=== PATIENT | female | born 1945 | race Caucasian/White ===

== ENCOUNTER 2017-11-18 12:37 | Outpatient (CLI) | payer OTHER | END 2017-11-18 12:44 | disposition home or self-care (01) | LOC: NUCLEAR 12:37 | DX: I83.12 Varicose veins of left lower extremity with inflammation (principal); I83.11 Varicose veins of right lower extremity with inflammation; M79.661 Pain in right lower leg; I87.2 Venous insufficiency (chronic) (peripheral); I83.012 Varicose veins of right lower extremity with ulcer of calf ==

== ENCOUNTER 2017-11-25 12:54 | Outpatient (CLI) | payer OTHER | END 2017-11-25 13:00 | disposition home or self-care (01) | LOC: NUCLEAR 12:54 | DX: L97.102 Non-pressure chronic ulcer of unspecified thigh with fat layer exposed (principal); I83.212 Varicose veins of right lower extremity with both ulcer of calf and inflammation; I83.11 Varicose veins of right lower extremity with inflammation; M79.661 Pain in right lower leg; I73.9 Peripheral vascular disease, unspecified ==

== ENCOUNTER 2019-05-06 13:15 | Emergency (ER) | payer OTHER ==
[~2019-05-06] VITALS: Ht 167.6 cm; Wt 68.0 kg
[2019-05-06] MEDS ORDERED: COZAAR50 MG PO (13:52)
[2019-05-06] MEDS ORDERED: FORTAMET1000 MG PO (13:52)
[2019-05-06] MEDS ORDERED: GLUMETZA500 MG PO (13:52)
[2019-05-06] MEDS ORDERED: TRIGLIDE160 MG PO (13:53)
[2019-05-06] MEDS ORDERED: PENTOXIFYLLINE400 MG PO (13:53)
[2019-05-06] MEDS ORDERED: GLIMEPIRIDE4 MG PO (13:54)
[2019-05-06] MEDS ORDERED: SIMVASTATIN5 MG PO (13:54)
== END 2019-05-06 16:53 | disposition home or self-care (01) ==
LOC: ER 13:15
DX: N39.0 Urinary tract infection, site not specified (principal); R31.0 Gross hematuria

== ENCOUNTER 2019-09-07 07:31 | Outpatient (CLI) | payer OTHER ==
[~2019-09-07 07:31] MED LIST: COZAAR50 MG PO; FORTAMET1000 MG PO; GLIMEPIRIDE4 MG PO; GLUMETZA500 MG PO; PENTOXIFYLLINE400 MG PO; SIMVASTATIN5 MG PO; TRIGLIDE160 MG PO
== END 2019-09-07 14:27 | disposition home or self-care (01) ==
LOC: NUCLEAR 07:31
DX: I11.9 Hypertensive heart disease without heart failure (principal); M81.0 Age-related osteoporosis without current pathological fracture; Z68.29 Body mass index [BMI] 29.0-29.9, adult; M79.604 Pain in right leg; M79.605 Pain in left leg; M79.661 Pain in right lower leg; I83.012 Varicose veins of right lower extremity with ulcer of calf; I83.11 Varicose veins of right lower extremity with inflammation; I83.813 Varicose veins of bilateral lower extremities with pain; E11.39 Type 2 diabetes mellitus with other diabetic ophthalmic complication; E11.618 Type 2 diabetes mellitus with other diabetic arthropathy; E11.620 Type 2 diabetes mellitus with diabetic dermatitis; E11.628 Type 2 diabetes mellitus with other skin complications

== ENCOUNTER → 2019-11-01 | Outpatient (CLI) | payer OTHER | END | disposition home or self-care (01) | LOC: NUCLEAR 09-06 09:00 → RAD 10:35 | DX: I11.9 Hypertensive heart disease without heart failure (principal); M79.605 Pain in left leg; M79.661 Pain in right lower leg; I83.012 Varicose veins of right lower extremity with ulcer of calf; I83.11 Varicose veins of right lower extremity with inflammation; I83.813 Varicose veins of bilateral lower extremities with pain; E11.29 Type 2 diabetes mellitus with other diabetic kidney complication; E11.618 Type 2 diabetes mellitus with other diabetic arthropathy; E11.39 Type 2 diabetes mellitus with other diabetic ophthalmic complication; E11.628 Type 2 diabetes mellitus with other skin complications ==

== ENCOUNTER 2019-11-21 10:04 | Outpatient (CLI) | payer OTHER | END 2019-11-21 10:09 | disposition home or self-care (01) | LOC: MRI 10:04 | PROVIDERS: ATTEND Orthopaedic Surgery | DX: M25.562 Pain in left knee (principal) | CPT/HCPCS: 73721 ==

== ENCOUNTER → 2020-05-03 09:30 | Outpatient (CLI) | payer OTHER | END | disposition home or self-care (01) | LOC: LAB 09:30 → RAD 09:30 | PROVIDERS: ATTEND Internal Medicine | DX: M25.511 Pain in right shoulder (principal); I83.012 Varicose veins of right lower extremity with ulcer of calf; I83.11 Varicose veins of right lower extremity with inflammation; I83.813 Varicose veins of bilateral lower extremities with pain; E11.39 Type 2 diabetes mellitus with other diabetic ophthalmic complication; E11.618 Type 2 diabetes mellitus with other diabetic arthropathy; E11.620 Type 2 diabetes mellitus with diabetic dermatitis; E11.628 Type 2 diabetes mellitus with other skin complications; I73.89 Other specified peripheral vascular diseases ==

== ENCOUNTER 2021-03-29 07:50 | Outpatient (CLI) | payer OTHER | END 2021-03-29 08:08 | disposition home or self-care (01) | LOC: RAD 07:50 | PROVIDERS: ATTEND Ophthalmology | DX: R07.89 Other chest pain (principal); I10 Essential (primary) hypertension; E11.9 Type 2 diabetes mellitus without complications; Z01.818 Encounter for other preprocedural examination; Z13.9 Encounter for screening, unspecified ==

== ENCOUNTER → 2021-09-24 11:39 | Outpatient (CLI) | payer OTHER | END | disposition home or self-care (01) | LOC: NUCLEAR 11:00 | PROVIDERS: ATTEND Internal Medicine | DX: M81.0 Age-related osteoporosis without current pathological fracture (principal) ==

== ENCOUNTER 2021-11-05 09:36 | Outpatient (CLI) | payer OTHER | END 2021-11-05 09:39 | disposition home or self-care (01) | LOC: RAD 09:36 | PROVIDERS: ATTEND Orthopaedic Surgery | DX: M25.561 Pain in right knee (principal); M25.562 Pain in left knee ==

== ENCOUNTER 2021-11-20 10:48 | Outpatient (CLI) | payer OTHER | END 2021-11-20 10:56 | disposition home or self-care (01) | LOC: MRI 10:48 | PROVIDERS: ATTEND Orthopaedic Surgery | DX: S83.201A Bucket-handle tear of unspecified meniscus, current injury, left knee, initial encounter (principal) | CPT/HCPCS: 73718 ==

== ENCOUNTER 2024-07-25 10:11 | Outpatient (CLI) | payer OTHER ==
[~2024-07-25 10:11] MED LIST changes: +MAXFE CAPLET1 EAC1 PO
== END 2024-07-25 10:15 | disposition home or self-care (01) ==
LOC: NUCLEAR 10:11
PROVIDERS: ATTEND Internal Medicine
DX: M89.9 Disorder of bone, unspecified (principal); M81.0 Age-related osteoporosis without current pathological fracture; N18.2 Chronic kidney disease, stage 2 (mild); Z79.84 Long term (current) use of oral hypoglycemic drugs; E11.319 Type 2 diabetes mellitus with unspecified diabetic retinopathy without macular edema; I73.9 Peripheral vascular disease, unspecified; D63.8 Anemia in other chronic diseases classified elsewhere